=== PATIENT | female | born 2000 | race Caucasian/White ===

== ENCOUNTER → 2021-05-27 00:38 | Outpatient (CLI) | payer MEDICAID, SELFPAY | PROVIDERS: PCP Internal Medicine; Visit Provider Otolaryngology Otolaryngology/Facial Plastic Surgery ==

== ENCOUNTER 2023-05-04 11:15 | Emergency (ER) | payer OTHER, SELFPAY ==
[2023-05-04 11:28] VITALS: BP 138/88; PULSE 99; RESP 16; TEMP 36.8; O2SAT 99
[2023-05-04 12:00] LABS: Bilirubin Negative (Negative); Blood Negative (Negative); Clarity Clear (Clear); Glucose Negative (Negative); Ketones Negative (Negative); Leukocyte Esterase Negative (Negative); Nitrite Negative (Negative); Urobilinogen 0.2 mg/dL (Up to 0.2)
== END 2023-05-04 11:56 ==
PROVIDERS: Emergency Provider Emergency Medicine; PCP Internal Medicine
DX: Z87.442 Personal history of urinary calculi; Z53.21 Procedure and treatment not carried out due to patient leaving prior to being seen by health care provider; R10.31 Right lower quadrant pain
CPT/HCPCS: 81003

== ENCOUNTER 2023-07-26 21:17 | Emergency (ER) | payer OTHER, SELFPAY ==
[2023-07-26 21:20] VITALS: BP 142/77; PULSE 93; RESP 16; TEMP 36.1; O2SAT 100
--- NOTE | 2023-07-26 22:00 | DI.CT_ITS ---
Exam(s) CT ABDOMEN PELVIS W EXAM: CT ABDOMEN PELVIS W CLINICAL HISTORY: rlq and ruq pain, eval for GB, cyst, appe. TECHNIQUE: Imaging Protocol: Axial computed tomography images with coronal and sagittal reformatted images were created and reviewed CONTRAST MATERIAL: Intravenous: Omnipaque-350 100cc Oral: None COMPARISON: No exams were available for comparison FINDINGS: VISUALIZED LUNG BASES: No nodules nor pleural effusions evident. ABDOMEN: There is no ascites. LIVER: There are no focal hepatic lesions evident. No dilated intrahepatic ducts. GALLBLADDER/BILIARY: No obvious gallbladder pathology. CBD is not dilated. PANCREAS: No evidence of pancreatic mass nor dilatation of the pancreatic duct. SPLEEN: Spleen is not enlarged. No obvious intrasplenic lesions. Splenic and portal veins are paten t. ADRENALS: There are no significant adrenal masses. KIDNEYS:Small benign 6 millimeters cyst in the left kidney noted. Does not require further workup. Even smaller cortical cysts noted on the opposite-right side. No solid renal masses. No calculi nor hydronephrosis.. ABDOMINAL AORTA: Abdominal aorta is not enlarged. LYMPH NODES:There is no retroperitoneal nor paraaortic adenopathy. ABDOMINAL WALL: No evidence of significant anterior abdominal wall nor inguinal hernia. GI: Abundant fecal material noted in the colon from the cecum to the distal transverse colon. Less s o distal to this PELVIS: GI: Appendix not able to be identified but there is no evidence of obvious acute appendicitis.No evid ence of sigmoid diverticulitis. LYMPH NODES: There is no intrapelvic nor inguinal adenopathy. REPRODUCTIVE: Uterus and ovaries appear [id number]. There is no free fluid in the pelvis. URINARY BLADDER: No calculi nor obvious masses evident OSSEOUS: No fractures and no significant osseous lesions. IMPRESSION: 1. There is abundant fecal material throughout the colon from the cecum to the splenic flexure, with the more normal appearing fecal load in the colon distal to the splenic flexure. There is also some fecalization of small bowel loops also consistent with slow transit. Probable constipation 2. Appendix is not easily identified but there is no evidence of obvious acute appendicitis and no ev idence of diverticulitis. 3. Uterus and ovaries appear age-appropriate. No free fluid in the pelvis. RADIATION DOSE DELIVERED: 871.4mGy.cm Total DLP DATA REPOSITORY: All CT scans at this facility are submitted to the National Radiology Data Registry (NRDR) Dose Index Registry (DIR) with the [employer] (A[employer]). RADIATION OPTIMIZATION: All CT scans at this facility use at least one of these dose optimization te chniques: automated exposure control; mA and/or kV adjustment per patient size (includes targeted exa ms where dose is matched to clinical indication); or iterative reconstruction.
--- NOTE | 2023-07-26 22:15 | ED.GENADUL_ITS ---
Discharge Plan Disposition Patient Disposition: Home Condition: Good Discharge Details Clinical Impression: Abdominal pain, Constipation Primary Care Provider: Marina Hickman ED Provider: Reji Benitez Home Meds and New Rx's Prescriptions: New docusate sodium [Colace] 100 mg capsule 100 mg PO BID 30 Days Qty: 60 0RF No Action quetiapine [Seroquel] 25 mg tablet 25 mg PO QHS alprazolam 0.5 mg tablet 0.5 mg PO BID-TID PRN Discharge Instructions Instructions: Constipation (ED), Abdominal Pain (ED) Additional Instructions: At this time your CAT scan has returned and shows no evidence of appendicitis, ovarian cyst, or gallbladder problems. Your laboratory workup is returned and is reassuring. Thankfully there is no infection in your urine. You do have a notable amount of constipation present on your CAT scan. This may certainly be a component of your symptomatology. Please take Colace twice daily as prescribed. Make sure you are taking it with 3 to 4 cups of water or juice to help facilitate a bowel movement. If you do not have any improvement of your symptoms or have a significant bowel movement after 3 to 4 days of Colace therapy, you may need additional help with magnesium citrate. Please drink a single bottle of [id number] magnesium citrate that can be found at your local pharmacy. If you notice any worsening of your symptoms, or any new symptoms such as vomiting, diarrhea, fever, chills, shortness of breath, chest pain, numbness, weakness, or fainting , please return immediately to the emergency department for reevaluation. Please follow up with your primary care provider as soon as possible for reassessment and reevaluation. As always, it was a pleasure participating in your medical care today. Referrals: Marina Hickman [Primary Care Provider] - [facility] General Date/Time Provider Initiated Documentation: 07/26/23 21:33 . HPI Narrative: 22-year-old female with a past medical history of endometriosis, ovarian cysts, interstitial cystitis, currently on the Depo shot for the last 5 years who does not have regular periods, who presents today for right-sided abdominal pain. Patient states that for the last 3 to 4 months that she has been having on and off right lower quadrant abdominal pain. It is sharp and achy in nature. It last 3 to 4 days and then goes away on its own. Since she has no menstrual cycle she is not able to correlate it to that. It usually happens once a month though. She has an outpatient ultrasound scheduled in the coming weeks. Today the pain began at 3 PM, it is worse than normal. She felt some mild chills at home. She admits to chronic urinary burning but no change otherwise. She denies vomiting or diarrhea, but does admit to nausea. Pain is located in the right lower quadrant, but she also admits to some mild achiness in the right upper quadrant. No left-sided tenderness. No vaginal discharge. No history of STDs. No other complaints at this time. Related Data Home Medications Medication Instructions Recorded Confirmed alprazolam 0.5 mg tablet 0.5 mg PO BID-TID PRN 05/04/23 07/26/23 quetiapine 25 mg tablet (Seroquel) 25 mg PO QHS 05/04/23 07/26/23 docusate sodium 100 mg capsule 100 mg PO BID 30 days #60 caps 07/27/23 (Colace) Previous Rx's Medication Instructions Recorded docusate sodium 100 mg capsule 100 mg PO BID 30 days #60 caps 07/27/23 (Colace) Allergies Allergy/AdvReac Type Severity Reaction Status Date / Time Sulfa (Sulfonamide Allergy Severe Anaphylaxis Verified 07/26/23 21:30 Antibiotics) General Stated Complaint: Abd Prob NORMA: 3 Review of Systems All systems reviewed & are unremarkable except as noted in HPI and below Exam Narrative Exam Narrative: 1.Const: Well-nourished, Well-developed, appearing stated age 2.Eyes: PERRL, no conjunctival injection, and symmetrical lids. 3.ENT: Atraumatic external nose and ears. Moist MM. Neck: Symmetric, trachea midline, No thyromegaly. 4.CVS: +S1/S2, No murmurs or gallops. Peripheral pulses 2+ and equal in all extremities. Brisk capillary refill in all extremities. 5.RESP: Unlabored respiratory effort. Clear to auscultation bilaterally. No wheezes rales or rhonchi 6.GI: Soft, nondistended, no guarding or rebound. Mild achiness in the right lower abdominal quadrant right pelvic quadrant. Negative Choi sign. Negative Rovsing sign. Negative obturator and psoas sign. 7.MSK: Normocephalic/Atraumatic, Extremities w/o deformity or ttp No cyanosis or clubbing, Normal movement of all extremities 8.Skin: Warm, Dry. No rashes or lesions. 9.Neuro: criminal investigator II-XII grossly intact. Sensation grossly intact, no focal neurologic deficits. 10.Psych: (AAO) x3. Appropriate mood and affect Course Vital Signs Vital signs: Vital Signs Temperature 36.1 C L 07/26/23 21:20 Pulse 93 H 07/26/23 21:20 Respiratory Rate 16 07/26/23 21:20 Blood Pressure 142/77 H 07/26/23 21:20 Pulse Oximetry 100 07/26/23 21:20 Temperature 36.1 C L 07/26/23 21:20 Temperature Source Tympanic 07/26/23 21:20 Pulse 93 H 07/26/23 21:20 Respiratory Rate 16 07/26/23 21:20 Respiratory Effort Normal 07/26/23 21:23 Blood Pressure 142/77 H 07/26/23 21:20 Blood Pressure Position Supine 07/26/23 21:20 Pulse Oximetry 100 07/26/23 21:20 Oxygen Delivery Method Room Air 07/26/23 21:20 Oxygen Flow Rate 0 07/26/23 21:20 Pain Level 7 07/26/23 21:20 Lab/Test Results Lab/Test Results: POC- Test(urine) Negative Medical Decision Making 22-year-old female with a past medical history of endometriosis, ovarian cysts, interstitial cystitis, currently on the Depo shot for the last 5 years who does not have regular periods, who presents today for right-sided abdominal pain. Patient states that for the last 3 to 4 months that she has b een having on and off right lower quadrant abdominal pain. It is sharp and achy in nature. It last 3 to 4 days and then goes away on its own. Since she has no menstrual cycle she is not able to correlate it to that. It usually happens once a month though. She has an outpatient ultrasound scheduled in the coming weeks. Today the pain began at 3 PM, it is worse than normal. She felt some mild chills at home. She admits to chronic urinary burning but no change otherwise. She denies vomiting or diarrhea, but does admit to nausea. Pain is located in the right lower quadrant, but she also admits to some mild achiness in the right upper quadrant. No left-sided tenderness. No vaginal discharge. No history of STDs. No other complaints at this time. Exam demonstrates well-appearing female, mild right lower and right pelvic quadrant tenderness. Negative Choi sign. No evidence of an acute surgical abdomen on exam. Differential includes chronic interstitial cystitis, ovarian cyst, less likely appendicitis, less likely cholecystitis. I discussed risk and benefits of CT imaging, especially in light of her upcoming ultrasound in the next week or so. As there is no evidence of an acute surgical etiology on exam it does give us potential opportunity for observation. That being said after discussion, since there is no ultrasound available at this time, patient would like to proceed with CT imaging. We will get a CT scan, give NSAIDs IV, rehydrate, monitor closely and reassess. 12:05 AM Laboratory workup has returned, no significant white count bandemia or left shift electrolyte abnormality or evidence of infection. Lipase is normal. CT scan shows no evidence of appendicitis, cholecystitis, or ovarian cyst. There is evidence of notable stool burden and right-sided constipation which correlates well with the patient's symptomatology. On reassessment the patient is feeling much better. She has no evidence of an acute surgical abdomen. Patient stable for discharge. Will prescribe Colace from use, recommend magnesium citrate if her symptoms do not improve over the next few days with therapy. Recommend close follow-up with primary care provider. Discussed red flags for which to return. I have extensively reviewed the treatment plan and discharge instructions with the patient. I have addressed all patient concerns at this time. The patient was made aware of what symptoms to monitor for that would warrant a return to the emergency department. Discussed the plan with the patient, they demonstrate verbal understanding and agreement with our assessment and plan at this time. The documentation in this chart was dictated using [employer] dictation software. Please excuse any dictation errors. FINDINGS: Lungs: Lung bases clear. Liver: Normal appearing liver. Gallbladder and bile ducts: Gallbladder partially collapsed. No calcified gallstones seen. No biliary dilatation. Pancreas: Normal appearing pancreas. Spleen: Normal appearing spleen. Adrenal glands: Normal appearing adrenal glands. Kidneys and ureters: Small indeterminate hypoattenuating renal lesions, not well characterized but statistically most likely renal cysts. No hydronephrosis. No obstructing ureteral stones. Stomach and bowel: No oral contrast. Stomach moderately distended with ingested material. No small bowel dilatation to suggest obstruction. Fecalization of contents through the distal and terminal ileum suggesting delayed transit through the distal small bowel. Prominent retained fecal material in the cecum, ascending colon, and transverse colon. Downstream colon relatively well evacuated. No evidence of diverticulitis or colitis. Appendix: Normal appendix, partially obscured Intraperitoneal space: No gross ascites or free air. No gross ascites or free air. Vasculature: Normal caliber abdominal aorta. Normal caliber abdominal aorta. Lymph nodes: No pathologically enlarged mesenteric, retroperitoneal, or pelvic sidewall lymph nodes. No pathologically enlarged mesenteric, retroperitoneal, or pelvic sidewall lymph nodes. Urinary bladder: Urinary bladder partially collapsed but grossly unremarkable, as seen. Reproductive: Uterus and ovaries partially obscured but normal in size. Normal- appearing bilateral ovarian follicles demonstrated by the high-resolution axial series. Bones/joints: No acute fracture seen among the bones of the abdomen or pelvis. Soft tissues: No significant ventral or inguinal hernia. No significant ventral or inguinal hernia. IMPRESSION: 1. Prominent retained fecal material in the cecum, ascending colon, and transverse colon. Clinical correlation is recommended to assess the possibility of right-sided constipation. Downstream colon relatively well evacuated. 2. Uterus and ovaries partially obscured but normal in size. No gross free pelvic fluid. 3. Normal appendix, partially obscured. Thank you for allowing us to participate in the care of your patient. Dictated and Authenticated by: Simone Spivey MD 07/26/2023 11:46 PM Eastern Time ([place] & [place]) Quality:SDOH Health Related Social Needs: No Data to Display PFSH All Active Problems (Updated 07/27/23 @ 00:03 by Reji Benitez DO) Constipation (Acute) Abdominal pain (Acute) Social History Smoking/Tobacco Use Status: Never Smoking risk assessment performed?: Yes Alcohol Intake: never Drug use: Never Substance use type: does not use Housing: apartment Do you feel safe at home: Yes Do you feel safe in your relationship?: Yes
[2023-07-26 22:44] LABS: Abs Immature Grans 0.02 10^3/uL (0.0-0.06); Absolute Basophil Count 0.06 10^3/uL (0.0-0.2); Absolute Eosinophil Count 0.07 10^3/uL (0.0-0.7); Absolute Lymphocyte Count 2.13 10^3/uL (1.2-3.4); Absolute Monocyte Count 0.51 10^3/uL (0.1-0.8); Absolute Neutrophil Count 5.33 10^3/uL (1.2-6.7); Basophils % 0.7 %; Eosinophils % 0.9 %; HCT 39.7 % (36.0-46.0); HGB 13.4 g/dL (11.2-15.7); Immature Grans % 0.2 %; Lymphocytes % 26.2 %; MCH 30.7 pg (27.0-33.0); MCHC 33.8 % (32.0-36.0); MCV 91 fL (80-95); MPV 9.7 fL (8.0-11.0); Monocytes % 6.3 %; Neutrophils % 65.7 %; Platelet Count 330 10^3/uL (130-400); RBC 4.37 10^6/uL (3.93-5.22); RDW 11.4 % (11.7-14.6); RDW-SD 38.3 fL; WBC 8.12 10^3/uL (4.4-10.8)
[2023-07-26 22:45] LABS: Bilirubin Negative (Negative); Blood Negative (Negative); Clarity Clear (Clear); Glucose Negative (Negative); Ketones Negative (Negative); Leukocyte Esterase Negative (Negative); Nitrite Negative (Negative); Specific Gravity 1.025 (1.005-1.025); Urobilinogen 0.2 mg/dL (Up to 0.2)
[2023-07-26] MEDS: Normal Saline - Diluent 50 ML VIAL IJ (22:53)
[2023-07-26] MEDS: Omnipaque 350 MG/ML 100 ML BTL IJ (22:54)
[2023-07-26 23:01] LABS: ALT 24 U/L (14-59); AST 9 U/L (15-37); Albumin 4.2 g/dL (3.4-5.0); Alkaline Phosphatase 69 U/L (46-116); Anion Gap 9.1 mmol/L (3-11); BUN 20 mg/dL (7-18); Bilirubin, Total 0.3 mg/dL (0.2-1.0); CO2 26.9 mmol/L (21.0-32.0); CREATININE 0.8 mg/dL (0.55-1.02); Calcium 9.1 mg/dL (8.5-10.1); Chloride 104 mmol/L (98-107); Estimated GFR 105.45 (mL/min/1.73m2); Glucose 91 mg/dL (74-106); Lipase 27 U/L (16-77); Potassium 3.7 mmol/L (3.5-5.1); Sodium 140 mmol/L (136-145); Total Protein 7.8 g/dL (6.4-8.2)
--- NOTE | 2023-07-26 23:47 | DI.VRAD_ITS ---
PROCEDURE INFORMATION: Exam: CT Abdomen And Pelvis With Contrast Exam date and time: 07/26/2023 10:57 PM Age: 22 years old Clinical indication: Abdominal pain; Other: Rlq and ruq pain; Additional info: Rlq and ruq pain, eval for gb, cyst, appe TECHNIQUE: Imaging protocol: Computed tomography of the abdomen and pelvis with contrast. Contrast material: OMNI 350; Contrast volume: 100 ml; Contrast route: INTRAVENOUS (IV); COMPARISON: No relevant prior studies available. FINDINGS: Lungs: Lung bases clear. Liver: Normal appearing liver. Gallbladder and bile ducts: Gallbladder partially collapsed. No calcified gallstones seen. No biliary dilatation. Pancreas: Normal appearing pancreas. Spleen: Normal appearing spleen. Adrenal glands: Normal appearing adrenal glands. Kidneys and ureters: Small indeterminate hypoattenuating renal lesions, not well characterized but statistically most likely renal cysts. No hydronephrosis. No obstructing ureteral stones. Stomach and bowel: No oral contrast. Stomach moderately distended with ingested material. No small bowel dilatation to suggest obstruction. Fecalization of contents through the distal and terminal ileum suggesting delayed transit through the distal small bowel. Prominent retained fecal material in the cecum, ascending colon, and transverse colon. Downstream colon relatively well evacuated. No evidence of diverticulitis or colitis. Appendix: Normal appendix, partially obscured. Intraperitoneal space: No gross ascites or free air. No gross ascites or free air. Vasculature: Normal caliber abdominal aorta. Normal caliber abdominal aorta. Lymph nodes: No pathologically enlarged mesenteric, retroperitoneal, or pelvic sidewall lymph nodes. No pathologically enlarged mesenteric, retroperitoneal, or pelvic sidewall lymph nodes. Urinary bladder: Urinary bladder partially collapsed but grossly unremarkable, as seen. Reproductive: Uterus and ovaries partially obscured but normal in size. Normal-appearing bilateral ovarian follicles demonstrated by the high-resolution axial series. Bones/joints: No acute fracture seen among the bones of the abdomen or pelvis. Soft tissues: No significant ventral or inguinal hernia. No significant ventral or inguinal hernia. IMPRESSION: 1. Prominent retained fecal material in the cecum, ascending colon, and transverse colon. Clinical correlation is recommended to assess the possibility of right-sided constipation. Downstream colon relatively well evacuated. 2. Uterus and ovaries partially obscured but normal in size. No gross free pelvic fluid. 3. Normal appendix, partially obscured. Dictated and Authenticated by: Simone Spivey MD. Ordering:SEMAJ Mendoza MD
[2023-07-26] MEDS: Lactated Ringers 1,000 ML 1000 ML IV (23:48)
[2023-07-27 00:17] VITALS: BP 128/91; PULSE 83; RESP 21; TEMP 36.3; O2SAT 100
[2023-07-27] MEDS: Ketorolac 15 MG/ML VIAL IVP (00:26)
[2023-07-27] MEDS: Ondansetron 4 MG/2 ML VIAL IVP (00:27)
== END 2023-07-27 00:17 | disposition home or self-care (01) ==
PROVIDERS: Emergency Provider Student in an Organized Health Care Education/Training Program; PCP Internal Medicine
DX: R10.32 Left lower quadrant pain (principal); K59.00 Constipation, unspecified
CPT/HCPCS: 36415; 80053; 81025; 83690; 99285; 74177; 81003; 85025; 99284; J1885; J2405; J3490